=== PATIENT | female | born 1995 | race Caucasian/White ===

== ENCOUNTER 2016-10-24 08:38 | Emergency (ER) | payer MEDICAID ==
[~2016-10-24] VITALS: Ht 167.6 cm; Wt 97.7 kg
[2016-10-24 08:40] VITALS: Ht 167.6 cm; Wt 97.7 kg
--- OUTSIDE RECORDS SUMMARY | 2016-10-24 08:43 | XMS REPORT | Referral Summary ---
Author Author [facility] Organization [facility] Address Unknown Phone Unavailable Care Team Providers Care Program Professional Name Role Phone Josh Rojas Primary Care Physician [phone] Encounter VC Date(s): 10/14/14 - 10/14/14 [facility] [address], [address] [address] Discharge Diagnosis: Discharge Disposition: 01-Home or Self Care Attending Physician: Enio Rojas MD Admitting Physician: Enio Rojas MD Vital Signs Most recent to 1 oldest [Reference Range]: Blood Pressure 130/78 mmHg [90-140/60-90 mmHg] (10/14/14 1:52 PM) Problem List Condition Effective Dates Status Health Status Informant Acute < 10/26/14 Resolved patient pain(Confirmed) Obesity(Confirmed) Active patient (Confirmed) 12/02/11 - 07/27/12 Resolved Tobacco Active patient user(Confirmed) Allergies, Adverse Reactions, Alerts No Known Medication Allergies Medications No Known Medications Results No data available for this section Immunizations Vaccine Date Refusal Reason tetanus/diphth/pertuss (Tdap) adult/adol 09/16/14 tetanus/diphth/pertuss (Tdap) adult/adol 12/18/06 human papillomavirus vaccine 03/28/11 human papillomavirus vaccine 01/16/11 human papillomavirus vaccine 02/11/10 influenza virus vaccine, inactivated1 03/17/14 meningococcal conjugate vaccine 02/11/10 RHo (D) immune globulin 08/26/14 varicella virus vaccine 01/16/11 1Result Comment: [03/19/2014] See scanned document Procedures No data available for this section Social History Social History Type Response Smoking Status Current every day smoker; Type: Cigarettes; Tobacco use per day: Pack; Number of years: 7 Assessment and Plan Extracted from: Title: Office Visit Note Author: Enio Rojas MD Date: 10/14/14 Assessment/Plan routine care, check GBS, one week, see ob flow, still interested in TOLAC. Ordered: Group B Strep by PCR services 3003 Return to Clinic
--- OUTSIDE RECORDS SUMMARY | 2016-10-24 08:43 | XMS REPORT | Referral Summary ---
Author Author [facility] Organization [facility] Address Unknown Phone Unavailable Care Team Providers Care Integrity Director Name Role Phone Josh Rojas Primary Care Physician [phone] Encounter [facility] [id number] Date(s): 10/24/14 - 10/26/14 [facility] [address] [place], [place] [address] Discharge Diagnosis: (normal spontaneous vaginal delivery) Final: Premature rupture of membranes, delivered, with or without mention of antepartum condition Final: First-degree perineal laceration during delivery, delivered, with or without mention of antepartum condition Final: Other and unspecified cord entanglement, without mention of compression, complicating labor and delivery, delivered, with or without mention of antepartum condition Final: Previous section, delivered, with or without mention of antepartum condition Final: Tobacco use disorder complicating , childbirth, or the puerperium, delivered, with or without mention of antepartum condition Final: MOTHER WITH SINGLE LIVEBORN Discharge Disposition: 01-Home or Self Care Attending Physician: Enio Rojas MD Admitting Physician: Enio Rojas MD Vital Signs Most recent to 1 oldest [Reference Range]: Temperature Oral 36.7 degC [35.8-37.3 degC] (10/26/14 4:00 PM) Peripheral Pulse 105 bpm Rate [60-100 bpm] *HI* (10/24/14 12:04 PM) Heart Rate Monitored 72 bpm [60-100 bpm] (10/26/14 4:00 PM) Respiratory Rate 18 br/min [14-20 br/min] (10/26/14 4:00 PM) Blood Pressure 128/84 mmHg [90-140/60-90 mmHg] (10/26/14 4:00 PM) SpO2 100 % (10/26/14 4:00 PM) Problem List Condition Effective Dates Status Health Status Informant Acute < 10/26/14 Resolved patient pain(Confirmed) Obesity(Confirmed) Active patient (Confirmed) 12/02/11 - 07/27/12 Resolved Tobacco Active patient user(Confirmed) Allergies, Adverse Reactions, Alerts No Known Medication Allergies Medications No Known Medications Results Hematology Most recent to 1 oldest [Reference Range]: WBC [4.8-10.8 15.3 10*3/uL 10*3/uL] *HI* (10/24/14 12:57 PM) RBC [4.00-5.20 3.98 10*6/uL 10*6/uL] *LOW* (10/24/14 12:57 PM) Hgb [12.0-16.0 12.3 gm/dL gm/dL] (10/24/14 12:57 PM) Hct [37.0-47.0 %] 34.9 % *LOW* (10/24/14 12:57 PM) MCV [82.0-99.0 fL] 87.7 fL (10/24/14 12:57 PM) MCH [27.0-32.0 pg] 30.9 pg (10/24/14 12:57 PM) MCHC [32.0-36.0 35.2 gm/dL gm/dL] (10/24/14 12:57 PM) RDW [11.5-14.5 %] 12.4 % (10/24/14 12:57 PM) Platelet [150-400 207 10*3/uL 10*3/uL] (10/24/14 12:57 PM) MPV [9.4-12.4 fL] 11.1 fL (10/24/14 12:57 PM) Immature 0.7 % Granulocytes (10/24/14 12:57 PM) [0.0-1.0 %] Neutrophils [51-75 75 % %] (10/24/14 12:57 PM) Lymphocytes [20-46 16 % %] *LOW* (10/24/14 12:57 PM) Monocytes [4-11 %] 7 % (10/24/14 12:57 PM) Eosinophils [0-4 %] 1 % (10/24/14 12:57 PM) Basophils [0-2 %] 0 % (10/24/14 12:57 PM) Neutro Absolute 11.51 10*3 [1.90-7.00 10*3] *HI* (10/24/14 12:57 PM) Lymph Absolute 2.49 10*3 [0.80-3.30 10*3] (10/24/14 12:57 PM) Geneva Absolute 1.07 10*3 [0.30-1.00 10*3] *HI* (10/24/14 12:57 PM) Eos Absolute 0.13 10*3 [0.00-0.50 10*3] (10/24/14 12:57 PM) Baso Absolute 0.03 10*3 [0.00-0.20 10*3] (10/24/14 12:57 PM) Toxic Gran Occasional *ABN* (10/24/14 12:57 PM) Nucleated RBC 0.0 /100 WBC Automated [0 /100 (10/24/14 12:57 PM) WBC] Differential Scanned Slide (10/24/14 12:57 PM) Chemistry Most recent to 1 oldest [Reference Range]: AmniSure ROM Positive 1 [Negative] *ABN* (10/24/14 1:06 PM) 1Result Comment: Presence of blood collected with the swab can lead to false positives. The performance of the AnmiSure has not been established in the presence of the following contaminants: meconium, anti-fungal creams or suppositories, K-Y Jelly, Monistat, Baby Powder (starch and Talc), Replens and Baby Oil. In very rare cases when a sample is taken 12 hours or later after a rupture a false negative result may occur due to obstruction of the rupture by fetus or resealing of the amniotic sac. Blood Bank Results Most recent to 1 oldest [Reference Range]: ABO/Rh A NEG (10/24/14 12:57 PM) Antibody Screen Tube NEG (10/24/14 12:57 PM) Immunizations Vaccine Date Refusal Reason tetanus/diphth/pertuss (Tdap) [...] Number of years: 7 Assessment and Plan No data available for this section
--- OUTSIDE RECORDS SUMMARY | 2016-10-24 08:43 | XMS REPORT | Referral Summary ---
Author Author [facility] Organization [facility] Address Unknown Phone Unavailable Care Team Providers Care Adult Family Home Program Manager Name Role Phone Josh Rojas Primary Care Physician [phone] Encounter VC Date(s): 10/25/14 - 10/25/14 [facility] [address], [address] [address] Discharge Disposition: 01-Home or Self Care Attending Physician: Enio Rojas MD Admitting Physician: Enio Rojas MD Vital Signs No data available for this section Problem List Condition Effective Dates Status Health Status Informant Acute < 10/26/14 Resolved patient pain(Confirmed) Obesity(Confirmed) Active patient (Confirmed) 12/02/11 - 07/27/12 Resolved Tobacco Active patient user(Confirmed) Allergies, Adverse Reactions, Alerts No Known Medication Allergies Medications No data available for this section Results No data available for this section Immunizations Vaccine Date Refusal Reason tetanus/diphth/pertuss (Tdap) adult/adol 09/16/14 tetanus/diphth/pertuss (Tdap) adult/adol 12/18/06 human papillomavirus vaccine 03/28/11 human papillomavirus vaccine 01/16/11 human papillomavirus vaccine 02/11/10 influenza virus vaccine, inactivated1 03/17/14 meningococcal conjugate vaccine 02/11/10 RHo (D) immune globulin 08/26/14 varicella virus vaccine 01/16/11 1Result Comment: [03/19/2014] See scanned document Procedures Procedure Date Related Diagnosis Body Site Routine obstetric care including antepartum 10/25/14 care, vaginal delivery (with or without episiotomy, and/or forceps) and care Social History Social History Type Response Smoking Status Current every day smoker; Type: Cigarettes; Tobacco use per day: Pack; Number of years: 7 Assessment and Plan No data available for this section
--- OUTSIDE RECORDS SUMMARY | 2016-10-24 08:44 | XMS REPORT | Referral Summary ---
Author Organization Unknown Address Unknown Phone Unavailable Care Team Providers Care Ore Buyer Name Role Phone Josh Rojas Primary Care Physician [phone] Encounter VC Date(s): 06/26/14 - 06/26/14 [facility], [facility], [facility], Family Medicine [address], [address] [place], [place] [address] Discharge Diagnosis: Discharge Disposition: Home or Self Care Attending Physician: Enio Rojas MD Admitting Physician: Enio Rojas MD Vital Signs Most recent to 1 oldest [Reference Range]: Blood Pressure 114/70 mmHg [90-140/60-90 mmHg] (06/26/14 1:43 PM) Problem List Condition Effective Dates Status Health Status Informant (Confirmed) 12/02/11 - 07/27/12 Resolved Allergies, Adverse Reactions, Alerts No Known Medication Allergies Medications aspirin 81 mg oral tablet 1 tabs, Oral, Daily, # 30 tabs, 0 Refill(s), other reason (Rx) Start Date: 04/28/14 Status: Ordered promethazine 25 mg oral tablet 1 tabs, Oral, q8hr, as needed for nausea/vomiting, # 30 tabs, 2 Refill(s), Pharmacy: [facility] #[id number], 1 tabs Oral q8hr,PRN:as needed for nausea/ vomiting Start Date: 06/24/14 Stop Date: 08/22/14 Status: Ordered Results No data available for this section Immunizations Vaccine Date Refusal Reason tetanus/diphth/pertuss (Tdap) adult/adol 12/18/06 human papillomavirus vaccine 03/28/11 human papillomavirus vaccine 01/16/11 human papillomavirus vaccine 02/11/10 influenza virus vaccine, inactivated1 03/17/14 meningococcal conjugate vaccine 02/11/10 varicella virus vaccine 01/16/11 1Result Comment: [03/19/2014] See scanned document Procedures No data available for this section Social History Social History Type Response Smoking Status Never smoker Assessment and Plan Extracted from: Title: Office Visit Note Author: Enio Rojas MD Date: 06/26/14 Assessment/Plan routine care, 4 weeks, see ob flow Ordered: services 3003 Return to Clinic
--- OUTSIDE RECORDS SUMMARY | 2016-10-24 08:44 | XMS REPORT | Referral Summary ---
Author Author [facility] Organization [facility] Address Unknown Phone Unavailable Care Team Providers Care Still Photographer Name Role Phone Josh Rojas Primary Care Physician [phone] Encounter VC Date(s): 09/30/14 - 09/30/14 [facility] [address], [address] [address] Discharge Diagnosis: Discharge Disposition: 01-Home or Self Care Attending Physician: Enio Rojas MD Admitting Physician: Enio Rojas MD Vital Signs Most recent to 1 oldest [Reference Range]: Blood Pressure 124/66 mmHg [90-140/60-90 mmHg] (09/30/14 1:51 PM) Problem List Condition Effective Dates Status [...] Visit Note Author: Enio Rojas MD Date: 09/30/14 Assessment/Plan routine care, RTC 2 weeks, stop aspirin at 36 weeks, see ob flow Ordered: services 3003 Return to Clinic
--- OUTSIDE RECORDS SUMMARY | 2016-10-24 08:44 | XMS REPORT | Referral Summary ---
Author Organization Unknown Address Unknown Phone Unavailable Care Team Providers Care Materials Management Manager Name Role Phone Josh Rojas Primary Care Physician [phone] Encounter VC Date(s): 08/18/14 - 08/18/14 [facility], [facility], Bartolome [facility], Family Medicine [address], [address] [place], [place] [address] Discharge Diagnosis: Urine leukocytes Discharge Diagnosis: Discharge Disposition: Home or Self Care Attending Physician: Enio Rojas MD Admitting Physician: Enio Rojas MD Vital Signs Most recent to 1 oldest [Reference Range]: Blood Pressure 110/72 mmHg [90-140/60-90 mmHg] (08/18/14 8:34 AM) Problem List Condition Effective Dates Status Health [...] nausea/vomiting, # 30 tabs, 2 Refill(s), Pharmacy: [facility] #[id number], 1 tabs Oral q8hr,PRN:as needed for nausea/ vomiting Start Date: 06/24/14 Stop Date: 08/22/14 Status: Ordered Results Hematology Most recent to 1 oldest [Reference Range]: Hgb [12.0-16.0 12.8 gm/dL gm/dL] (08/18/14 8:57 AM) Chemistry Most recent to 1 oldest [Reference Range]: Gluc 1 hour 90 mg/dL 1 [70-140 mg/dL] (08/18/14 8:57 AM) 1Result Comment: An initial one hour screen resulting in a glucose of >140 mg/dL identifies around 80% of women with GDM. The yield is increased to 90% by using a cutoff of >130 mg/dL. Diagnosis of GDM is based on a 100 gram, 3 hour oral glucose tolerance test. Blood Bank Results Most recent to 1 oldest [Reference Range]: Antibody Screen Tube NEG (08/18/14 8:57 AM) Immunizations Vaccine Date Refusal Reason tetanus/diphth/pertuss (Tdap) [...] Visit Note Author: Enio Rojas MD Date: 08/18/14 Assessment/Plan routine care, glucola today, see ob flow, 4 weeks Ordered: Antibody Screen Tube Glucose Tolerance - 1 Hr Hemoglobin services 3003 Return to Clinic Urine leukocytes Ordered: Urine Culture
--- OUTSIDE RECORDS SUMMARY | 2016-10-24 08:44 | XMS REPORT | Continuity of Care Document ---
Author Author [facility] Organization [facility] Address Unknown Phone Unavailable Allergies Active Description Code Type Severity Reaction Onset Reported/Identified Relationship to Patient Clinical Status Yes No Known Drug Allergies Drug Allergy 08/02/2012 Medications Problems Date Dx Coded Attending Type Code Diagnosis Diagnosed By 07/27/2012 Enio Rojas MD Final 285.1 ACUTE POSTHEMOR ANEMIA 07/27/2012 Enio Rojas MD Final 642.51 SEVERE EAU-HRYHM-GSF 07/27/2012 Enio Rojas MD Final 648.21 ANEMIA IN PREG-DELIVERED 07/27/2012 Enio Rojas MD Final 661.11 2ND UTERINE INERTIA-DEL 07/27/2012 Enio Rojas MD Final V27.0 DELIVERY-SINGLE LIVEBORN 08/02/2012 Kulwinder Barrios MD Final 672.04 PUERPERAL PYREXIA-PP 08/02/2012 Kulwinder Barrios MD Final 674.34 OB SURG COMP NEC-PP Procedures Code Description Performed By Performed On 74.1 LOW CERVICAL CD Pino DONNELLY, Zohaib Matos 07/27/2012 Results Encounters ACCT No. Visit Date/Time Discharge Status Pt. Type Provider Facility Loc./Unit Complaint [id number] 08/02/2012 10:00:00 2012 12:25:00 DIS Emergency Kulwinder Barrios MD [facility] on [address] [id number] 07/27/2012 06:21:00 2012 14:30:00 DIS Inpatient Enio Rojas MD [facility] on [address]
--- OUTSIDE RECORDS SUMMARY | 2016-10-24 08:44 | XMS REPORT | Referral Summary ---
Author Organization Unknown Address Unknown Phone Unavailable Care Team Providers Care Bed Control Specialist Name Role Phone Josh Rojas Primary Care Physician [phone] Encounter VC Date(s): 09/30/14 - 09/30/14 [facility], [facility], Bartolome [facility], Family Medicine [address], [address] [place], [place] [address] Discharge Diagnosis: Discharge Disposition: Home or Self [...] nausea/vomiting, # 30 tabs, 2 Refill(s), Pharmacy: [facility] #[id number], 1 tabs Oral q8hr,PRN:as needed for nausea/ vomiting Start Date: 09/10/14 Stop Date: 11/10/14 Status: Ordered Results No data available for [...]
--- OUTSIDE RECORDS SUMMARY | 2016-10-24 08:44 | XMS REPORT | Referral Summary ---
Author Organization Unknown Address Unknown Phone Unavailable Care Team Providers Care Talent Program Manager Name Role Phone Josh Rojas Primary Care Physician [phone] Encounter VC Date(s): 09/16/14 - 09/16/14 [facility], [facility], Bartolome [facility], Family Medicine [address], [address] [place], [place] [address] Discharge Diagnosis: Discharge Disposition: Home or Self Care Attending Physician: Enio Rojas MD Admitting Physician: Enio Rojas MD Vital Signs Most recent to 1 oldest [Reference Range]: Blood Pressure 112/60 mmHg [90-140/60-90 mmHg] (09/16/14 1:30 PM) Problem List Condition Effective Dates Status [...] nausea/vomiting, # 30 tabs, 2 Refill(s), Pharmacy: [facility] #[id number], 1 tabs Oral q8hr,PRN:as needed for nausea/ [...] Visit Note Author: Enio Rojas MD Date: 09/16/14 Assessment/Plan routine care, Tdap, RTC 2 weeks, see ob flow. Ordered: tetanus/diphth/pertuss (Tdap) adult/adol, 0.5 mL, IntraMuscular, Once, First Dose: 09/16/14 14:00:00 CDT, Stop Date: 09/16/14 14:00:00 CDT services 3003 Return to Clinic
--- OUTSIDE RECORDS SUMMARY | 2016-10-24 08:44 | XMS REPORT | Referral Summary ---
Author Author [facility] Organization [facility] Address Unknown Phone Unavailable Care Team Providers Care Creative Services Designer Name Role Phone Josh Rojas Primary Care Physician [phone] Encounter VC Date(s): 10/21/14 - 10/21/14 [facility] [address], [address] [address] Discharge Diagnosis: Discharge Disposition: 01-Home or Self Care Attending Physician: Enio Rojas MD Admitting Physician: Enio Rojas MD Vital Signs Most recent to 1 oldest [Reference Range]: Blood Pressure 128/76 mmHg [90-140/60-90 mmHg] (10/21/14 1:40 PM) Problem List Condition Effective Dates Status [...] Visit Note Author: Enio Rojas MD Date: 10/21/14 Assessment/Plan routine care, one week, see ob flow. Ordered: services 3003 Return to Clinic
--- OUTSIDE RECORDS SUMMARY | 2016-10-24 08:44 | XMS REPORT | Referral Summary ---
Author Author [facility] Organization [facility] Address Unknown Phone Unavailable Care Team Providers Care Swimming Pool Attendant Name Role Phone Josh Rojas Primary Care Physician [phone] Encounter VC Date(s): 12/03/14 - 12/03/14 [facility] [address], [address] [address] Discharge Diagnosis: exam Discharge Disposition: 01-Home or Self Care Attending Physician: Enio Rojas MD Admitting Physician: Enio Rojas MD Vital Signs Most recent to 1 oldest [Reference Range]: Peripheral Pulse 64 bpm Rate [60-100 bpm] (12/03/14 2:55 PM) Blood Pressure 130/78 mmHg [90-140/60-90 mmHg] (12/03/14 2:55 PM) Problem List Condition Effective Dates Status [...] Visit Note Author: Enio Rojas MD Date: 12/03/14 Assessment/Plan exam continue current therapies and meds, sensible diet and exercise, routine f/u, pap at age 21. Ordered: Services 3008
--- OUTSIDE RECORDS SUMMARY | 2016-10-24 08:44 | XMS REPORT | Referral Summary ---
Author Author [facility] Organization [facility] Address Unknown Phone Unavailable Care Team Providers Care Professional Model Name Role Phone Josh Rojas Primary Care Physician [phone] Encounter VC Date(s): 10/14/14 - 10/14/14 [facility] [address], [address] [address] Discharge Diagnosis: Discharge Disposition: 01-Home or Self [...]
--- OUTSIDE RECORDS SUMMARY | 2016-10-24 08:44 | XMS REPORT | Referral Summary ---
Author Organization Unknown Address Unknown Phone Unavailable Care Team Providers Care Force Variation Equipment Tender Name Role Phone Josh Rojas Primary Care Physician [phone] Encounter VC Date(s): 07/30/14 - 07/30/14 [facility], [facility], Bartolome Deluca, Family Medicine [address], [address] [place], [place] [address] Discharge Diagnosis: Discharge Diagnosis: Urine leukocytes Discharge Disposition: Home or Self Care Attending Physician: Enio Rojas MD Admitting Physician: Enio Rojas MD Referring Physician: Enio Rojas MD Vital Signs Most recent to 1 oldest [Reference Range]: Blood Pressure 105/70 mmHg [90-140/60-90 mmHg] (07/30/14 3:25 PM) Problem List Condition Effective Dates Status [...] nausea/vomiting, # 30 tabs, 2 Refill(s), Pharmacy: [facility] #[id number], 1 tabs Oral q8hr,PRN:as needed for nausea/ [...] Visit Note Author: Enio Rojas MD Date: 07/30/14 Assessment/Plan routine care, glucola at f/u in 2 weeks, see ob flow. Ordered: services 3003 Return to Clinic Urine leukocytes Ordered: Urine Culture
--- NOTE | 2016-10-24 08:57 | ERPDOC ---
Departure Disposition Decision Date: October 24, 2016 Disposition Decision Time: 09:06 Disposition: 01 DISCHARGED HOME, SELF-CARE Impression Impression Impression: Primary Impression: Dental caries Severity: Severe Condition: Improved Seen By: Physician only Referrals: YOUR DENTIST Patient Instructions: Dental Caries (ED) Problems/Meds/Labs Reviewed?: Yes Medications reviewed and manag: Yes Follow up care ordered?: Yes Mental Status: Alert, Oriented Scripts Clindamycin HCl (Clindamycin HCl) 150 Mg Capsule 1 CAP PO QID for 7 Days, #28 CAP TAKE WITH A FULL GLASS OF WATER TO AVOID ESOPHAGEAL IRRITATION. Prov: LINCOLN TAPIA DO 10/24/16 HPI General Chief Complaint: Toothache Stated Complaint: TOOTH ACHE Time Seen by Provider: 08:50 Source: patient Exam Limitations: no limitations HPI Dental Initial Comments 21yo woman presents to the ER today with right mandibular pain. Pain has been present x3 days; pt called her PCM in [place]. PCM stated that he could not help pt with sx and recommended ER. Pt has no dental coverage. Has h/o numerous caries requiring repair. Occurred At: home Onset: Gradual, Getting worse Duration: other Pain Scale: Now & Worst: 8/10 Severity: severe Location: R lower 1 - Gayle at gum line 2 - mild swelling; none along gums Associated Symptoms: cheek swelling, nausea Allergies: Coded Allergies: No Known Allergies (Unverified , 10/24/16) Past History Past Medical History ENMT: dental problems Surgical History Surgical History Comments arm mass excision Review of Systems ENMT Teeth: pain Comments facial swelling All other Systems All Other Systems: Reviewed and Negative Exam General General Nourishment: well nourished, well developed, appears stated age, no acute distress, adult, obese General Body Habitus: well groomed Vital Signs: RN Vital Signs have been reviewed: Yes Fastrak Dental Face: swelling, NOT FOUND: asymmetry, bruising, erythema, numbness, tender Jaw: NOT FOUND: asymmetry Glands: NOT FOUND: L parotid swollen, R parotid swollen Ducts: NOT FOUND: L Tooele's blocked, R Tooele's blocked Lips: NOT FOUDN: laceration, swelling Gums: moist, pink, NOT FOUND: swelling Tongue: NOT FOUND: geographic, swelling Teeth: caries, crowns, NOT FOUND: fractures Pharynx: NOT FOUND: erythema, exudate, swelling Tonsils: NOT FOUND: erythema, exudate Neck: NOT FOUND: R anterior adenopathy, R posterior adenopathy Skin: NOT FOUND: rash Neurologic RN Documented GCS Eye Opening: Verbal: Motor: Total: Differential Diagnoses Considering: Gingival Abscess, Peritonsillar Abscess, Retropharyngeal Abscess, Caries, Impacted Tooth, Laceration, Sinusitis, Tooth Avulsion/Extrusion, Tooth Fracture Procedures Procedures Performed Procedures Performed: Dental Block Dental Block Procedure Dental Block : Pain Scale Pre: 8 Location: sub-mandibular Method: internal approach Anesthetic: 0.5% Bupivicaine Volume of Anesthetic (cc's): 1.8 Pain Scale Post: 0 Progress Results/Orders Orders Procedure Category Date Status Time Bupivacaine/Epi PHA 10/24/16 Complete *Dental* (Marcaine 09:00 Clindamycin (Cleocin) PHA 10/24/16 Complete 09:00 Medications Current ED Medications Bupivacaine HCl/ Epinephrine Bitart (Marcaine *Dental*) 1.8 ml O ONCE INJ Last administered on 10/24/16 08:59; Start 10/24/16 at 09:00; Stop 10/24/16 at 09:01; Status DC Clindamycin HCl (Cleocin) 150 mg O ONCE PO Last administered on 10/24/16 08: 59; Start 10/24/16 at 09:00; Stop 10/24/16 at 09:01; Status DC Progress Progress Dental block successfully performed in ER. Pt given initial dose of atbx and rx for continued coverage while seeking dental care. Pt voiced understanding of dx , prognosis, tx, and f/u need. LINCOLN TAPIA DO October 24, 2016 08:57 LINCOLN TAPIA DO October 24, 2016 08:57
[2016-10-24] MEDS ORDERED: [UNRECOGNIZED DRUG - REMARK] (08:58)
[2016-10-24] MEDS ORDERED: CLINDAMYCIN 150 MG CAPSULE PO ONE (09:00)
[2016-10-24] MEDS ORDERED: BUPIVACAINE 0.5%/EPI 1:200K *DENTAL* 1.8ml SYRINGE INJ ONE (09:00)
--- NOTE | 2016-10-24 09:02 | NUR ---
PROVIDER DR TAPIA AT BEDSIDE FOR DENTAL BLOCK
[2016-10-24] MEDS ORDERED: CLIN-89 PO (09:07)
--- OUTSIDE RECORDS SUMMARY | 2016-10-24 09:10 | XMS REPORT | Continuity of Care Document ---
Author Author [facility] Organization [facility] Address Unknown Phone Unavailable Allergies Active Description Code Type Severity Reaction Onset Reported/Identified Relationship to Patient Clinical Status Yes No Known Drug Allergies Drug Allergy 08/02/2012 Medications Problems Date Dx Coded Attending Type Code Diagnosis Diagnosed By 07/27/2012 Enio Rojas MD Final 285.1 ACUTE POSTHEMOR ANEMIA 07/27/2012 Enio Rojas MD Final 642.51 SEVERE [id number] 07/27/2012 Enio Rojas MD Final 648.21 ANEMIA [...] Status Pt. Type Provider Facility Loc./Unit Complaint [id number] 08/02/2012 10:00:00 2012 12:25:00 DIS Emergency Kulwinder Barrios MD [facility] on [address] [id number] 07/27/2012 06:21:00 2012 14:30:00 DIS Inpatient Enio Rojas MD [facility] on [address]
[2016-10-24 09:14] VITALS: BP 127/71; PULSE 82; RESP 16; TEMP 97.8; O2SAT 98
--- NOTE | 2016-10-24 09:14 | NUR ---
DISMISSAL DISMISSAL INSTRUCTIONS WITH RX X1. NO FURTHER QUESTIONS AT THIS TIME. PT DENIES PAIN AT TIME OF DISMISSAL
== END 2016-10-24 09:14 | disposition home or self-care (01) ==
LOC: ED 08:38
DX: K02.9 Dental caries, unspecified (principal)
CPT/HCPCS: 64400; 99283; S0020